=== PATIENT | female | born 1975 | race Caucasian/White ===

== ENCOUNTER 2018-01-24 08:19 | Day surgery (SDC) | payer SELFPAY ==
[2018-01-21 11:27] LABS: Hematocrit 38.6 % (37-47); Hemoglobin 13.3 g/dl (12.0-15.0); Mean Corp Hgb Conc 34.5 g/gl (32-36); Mean Corpuscular Hgb 28.9 pg (27.0-32.0); Mean Corpuscular Volume 83.9 fL (81-99); Mean Platelet Vol. 10.5 fl (6.2-12.0); Platelet Count 212 K/mm3 (150-450); RBC Distribution Width SD 39.6 fl (35.1-43.9)
[2018-01-21 11:28] LABS: Scan Indicated on CBC? Y/N NO
[2018-01-22 10:47] LABS: Cancer Antigen 125 18.5 U/mL (0.0-38.1)
[2018-01-24] VITALS (8 sets, daily range): BP systolic 81–110; BP diastolic 47–63; PULSE 40–61; RESP 12–18; TEMP 36.2–36.9; O2SAT 94–100; BMI 23.3
--- NOTE | 2018-01-24 | FLU_PTH ---
PATIENT: STEPHANE HENRIQUEZ [place] [facility] [id number] AGE/SX: 42/F ROOM: RE01/24/[address]: Dr. Berna Sunshine MD : 1975 BED: DIS: 01/24/2018 SPEC #: [id number] RECD: 01/24/18 13:45 STATUS: KEI RYNE #: [id number] AMBAR: 01/24/18 00:[address]: Berna Sunshine DEPT: CYTOLOGY RECD BY: Saurav Porter ENTERED: 01/24/18 13:46 SP TYPE: Fluid OTHR DR: No Primary Care Phys Tissues: Pelvis, NOS Procedures: Special Stain Group II Surgery Specimen Level IV Cytospin Fluid HEADER OPERATION: Laparoscopic salpingectomy, removal left ovarian cyst PRE-OP DIAGNOSIS: Pelvic mass, pelvic pain, sterilization requested TISSUE SUBMITTED: Pelvic washings in normal saline for cytology DIAGNOSIS CYTOLOGY Pelvic washings for cytology (cytospin and cell block): Negative for malignant cells. AM:grzegorz 01/25/18 COMMENT Please correlate with corresponding surgical case ([id number]). CYTOLOGY STUDY Slides are reviewed. CYTOLOGY GROSS Received is 50 ml of cloudy red fluid labeled with the patient's name and and designated per the requisition as pelvic washings. Submitted for cytology preparation including cell block. / 01/24/18 TC:5 CPT: 84604, 02152
--- NOTE | 2018-01-24 | FALS_PTH ---
PATIENT: STEPHANE HENRIQUEZ [place] [facility] [place][id number] AGE/SX: 42/F ROOM: RE01/24/[address]: Dr. Berna Sunshine MD : 1975 BED: DIS: 01/24/2018 SPEC #: [id number] RECD: 01/24/18 13:45 STATUS: KEI RYNE #: [id number] AMBAR: 01/24/18 00:[address]: Berna Sunshine DEPT: SURGICAL PATHOLOGY RECD BY: Saurav Porter ENTERED: 01/24/18 13:45 SP TYPE: FALL TUBES OTHR DR: No Primary Care Phys Tissues: A - Fallopian tube B - Left ovary Procedures: Surgery Specimen Level II Surgery Specimen Level IV HEADER OPERATION: Laparoscopic salpingectomy, removal left ovarian cyst PRE-OP DIAGNOSIS: Pelvic mass, pelvic pain, sterilization requested TISSUE SUBMITTED: A ? Fallopian tubes, B ? Left ovarian cyst MICROSCOPIC DIAGNOSIS A. Right and left fallopian tubes, bilateral salpingectomies: Fallopian tubes with no pathologic change. B. Left ovarian cyst, oophorectomy: Hemorrhagic and partially infarcted ovary. Cysts suggestive of corpus luteal cysts with associated microcalcifications and edema. AM:grzegorz 01/25/18 COMMENT Please see corresponding cytology ([id number]). MICROSCOPIC DESCRIPTION Slides are reviewed. GROSS DESCRIPTION A - Received is one container labeled with the patient's name and designated bilateral fallopian tubes. The specimen consists of two fallopian tubes with an average length of 7 cm and has an average diameter of 0.7 cm. Both fallopian tubes have normal fimbriated ends. No mass lesions are identified. One fallopian tube contains a smooth glistening cyst containing clear fluid and measuring 0.7 cm adjacent to its fimbrial end. This fallopian tube is inked in black ink. Tumbler Operator sections of both fallopian tubes and cyst are submitted in one cassette. B - Received in fixative is one container labeled with the patient's name and designated left ovarian cyst. The specimen consists of a [id number] cystic structure measuring 6 x 3.5 x 2.2 cm. The external surface is smooth and glistening. Sections reveal hemorrhagic and granular cut surfaces with focal cystic change. Tumbler Operator sections are submitted in two cassettes. / AM:grzegorz 01/24/18 TC:5 CPT: 55560 x2, 99137
[2018-01-24 08:48] LABS: Internal QC Validated? YES +Cl - CLEAR BKGD; Pregnancy, Urine Negative Negative
[2018-01-24] MEDS: Celecoxib 200 MG Capsule 400 MG PO (09:05)
[2018-01-24] MEDS: Acetaminophen 500 MG Tablet 1000 MG PO (09:05)
[2018-01-24] MEDS: Gabapentin 600 MG Tablet PO (09:06)
--- NOTE | 2018-01-24 10:55 | PCM.DC.TUB ---
Discharge Diet: No Restrictions - Increase fluid intake for the next 48 hours. Discharge Activity: Return to Normal Activity, May Drive - when you are no longer taking pain/narcotic meds., May Shower, May Take a Tub Bath - in 7 days Additional Activity Instructions:: Ambulate often the next week after surgery. Nothing in the vagina for 5 days. Call your doctor if your incision/area has: Continuous Slow Oozing, Sudden Increased Bleeding, Increased Pain/ Swelling, Increased Redness, Foul Smelling Discharge Call your doctor if you observe: Fever of 101 or Higher Cleanse incision/area with: Soap & Water - your incisions have skin glue, they can get wet. Allergies/Adverse Reactions: Allergies No Known Allergies Allergy (Verified 01/18/18 14:21) Medications to take at Discharge Multivitamin [Multiple Vitamins] 1 each PO DAILY 01/18/18 Primary Care Physician: Care Physician,No Primary [Primary Care Provider] - Test Results: Test results from this visit will be discussed in further detail at your follow-up appointment, if applicable. Please Follow Up With: Berna Sunshine MD - [phone] When: Dr. Sunshine's office as scheduled in 2-4 weeks or as needed
[2018-01-24] MEDS: Bupivacaine Mpf 0.5% 30 ML VIAL (11:30)
--- NOTE | 2018-01-24 11:40 | PCM.OPRPT ---
Report of Operation Date of Procedure: 01/24/18 Pre-Operative Diagnosis: pelvic pain, complext pelvic elis, sterilization request Post-Operative Diagnosis: same Surgery/Procedure Performed:: laparoscopic bilateral salpingectomy, left ovarian cyst removal Description of Surgical Findings:: complex left ovarian cyst on small pedicle, adhered to posterior cul de sac w/ filmy adhesions, normal right ovary, remainder of left ovary normal, normal uterus and tubes, otherwise normal pelvis resident care provider: Jamaica Walls resident care provider: Dari Calix MS3 Type of Anesthesia:: General Special Medications: none Specimen's removed: bilateral tubes, left ovarian cyst Drains: none Estimated Blood Loss (mL): 10cc Fluids Replaced: 1400 cc LR Description of Procedure: The patient was taken to the operating room where she was prepped and draped in the dorsolithotomy position. A weighted speculum was placed in the vagina and the anterior lip of the cervix was grasped with a tenaculum. The Cherie uterine manipulator was placed and the remainder of the instruments were removed from the vagina. Attention was turned to the abdomen. All port sites were infiltrated with 0.5% Marcaine before skin incisions were made. A 5 mm intraumbilical incision was made. The anterior abdominal wall was tented up with 2 towel clamps while a 5 mm blade less trocar and sleeve were directly inserted. Intraperitoneal placement was confirmed with the laparoscope. The pneumoperitoneum was created and the underlying abdominal contents were intact. The patient was placed in Trendelenburg. Right and left lower quadrant ports were placed under direct visualization lateral to the inferior epigastric vessels. The bowel was swept away and the above findings were noted. Pelvic Washings were done with normal saline. The LigaSure device was used to clamp seal and transect the antimesenteric portions of the right tube to the cornual insertion of the uterus. The tube was amputated from the uterus and the pedicles were all confirmed to be hemostatic. The same procedure was performed on the contralateral side. The specimens were brought out through a 5 mm port. The pedicles were again examined and found to be hemostatic. The complex left ovarian cyst was noted to be somewhat adhered to the posterior cul-de-sac. The adhesions were filmy. The cyst arose from a small pedicle on the left ovary. It was dictated from the left ovary added small pedicle with the LigaSure device. The filmy adhesions were then taken down with the LigaSure device and the mass was freed. The umbilical port site was enlarged and an Endo Catch bag was placed through this port and the mass was placed inside. Once it was inside the bag it was ruptured bluntly. The mass and the cyst contents were removed through the umbilical incision. Care was taken to ensure that the contents named in the bag were not spilled. The umbilical fascia was closed with the Clyde Krueger device and an 0 Vicryl suture. Adequate closure was noted with palpation. The lateral ports were removed under direct visualization and no active bleeding was noted. The pneumoperitoneum was released. The skin incisions were closed with Monocryl suture in a subcuticular fashion and skin glue Dr. aVldez.. The vaginal instruments were removed and the vaginal sweep was completed by Dr. Valdez.. The procedure was performed by me with assistance other than as dictated above. All sponge and needle counts were correct and the patient was taken to the recovery room in stable condition. Grafts/Implants Used: none - Complications none - Admit VTE Documentation VTE Present on Admission: No VTE Mechan Device Prophylaxis: SCD's VTE Pharm Prophylaxis ordered?: No Reason prophylaxis not ordered:: Procedure Not Indicated
== END 2018-01-24 14:52 | disposition home or self-care (01) ==
LOC: SDC 08:20 → AC 08:25
PROVIDERS: Visit Provider Obstetrics & Gynecology
PROC: (CPT 58661; principal; 2018-01-24 09:45)
DX: N83.202 Unspecified ovarian cyst, left side (principal); N83.8 Other noninflammatory disorders of ovary, fallopian tube and broad ligament; Z30.2 Encounter for sterilization; F34.1 Dysthymic disorder
CPT/HCPCS: 00840; 58661; 58662; 36415; 81025; 85027; 86304; 86850; 86900; 88108; 88302; 88305; 88313; J7120; J2405

== ENCOUNTER 2025-04-05 10:44 | Emergency (ER) | payer OTHER, SELFPAY ==
[2025-04-05 10:46] VITALS: BP 116/84; PULSE 77; RESP 16; TEMP 36.9; O2SAT 99; BMI 23.6
[2025-04-05 11:52] VITALS: BP 125/90; PULSE 66; RESP 14; O2SAT 100
[2025-04-05 12:03] LABS: Mucous, Urine 0 SEEN /hpf (<or=2+); Red Blood Cells-Urine 0 SEEN /hpf (0-5)
[2025-04-05 12:03] LABS: Hematocrit 37.1 % (37-47); Hemoglobin 13.2 g/dL (12.0-15.0); Immature Granulocytes Count 0.010 X10^3/uL (0.0-0.0); Mean Corp Hgb Conc 35.6 g/dL (32-36); Mean Corpuscular Volume 83.0 fL (81-99); Mean Platelet Vol. 9.9 fl (6.2-12.0); NRBC Flagged by Analyzer 0 % (0-5); Platelet Count 211 K/mm3 (150-450); RBC Distribution Width CV 12.2 % (11.6-14.6); RBC Distribution Width SD 36.7 fl (35.1-43.9); Red Blood Count 4.47 M/mm3 (4.2-5.4); White Blood Count 5.3 K/mm3 (4.4-11.0)
[2025-04-05 12:05] LABS: Color, Urine Yellow (Yellow); Glucose, Dipstick Normal (Normal); Ketone-Dipstick Negative (Negative); Leukocyte Esterase-Dipstick Negative /ul (Negative); Nitrite-Dipstick Negative (Negative); Occult Blood-Urine 10 /ul (Negative); Protein-Dipstick 15 mg/dl (Negative); Specific Gravity, Urine 1.010 (1.002-1.030); Urine Bilirubin Dipstick Negative (Negative)
[2025-04-05 12:05] LABS: Internal QC Validated? YES +Cl - CLEAR BKGD; Pregnancy, Serum, hCG Quali. NEGATIVE Negative; Record Kit Lot#, Serum Preg. 980607
[2025-04-05 12:13] LABS: AST(SGOT) 21 U/L (<=31); Alanine Aminotransfer ALT/SGPT 13 U/L (<=34); Albumin, Serum 4.5 g/dL (3.5-5.0); Alkaline Phosphatase 37 U/L (35-104); Anion Gap 9 (5-15); BUN 10 mg/dL (4-19); BUN/Creat Ratio 12.5 RATIO (10-20); Calcium,Total 9.1 mg/dL (7.6-11.0); Carbon Dioxide 26.6 mmol/L (21.0-32.0); Chloride 102 mmol/L (98-108); Estimated Creatinine Clearance 83.62 ml/min (50-250); Globulin 2.2 g/dL (2.2-4.2); Glucose 89 mg/dL (70-99); Lipase 45 U/L (13-75); Potassium 4.0 mmol/L (3.3-5.1)
[2025-04-05 12:16] LABS: Squamous Epithelial Cells - UA 0-5 SEEN /hpf (5-10)
--- NOTE | 2025-04-05 12:50 | CT_ITS ---
PROCEDURE: CT/Abdomen/Pelvis W IV Cont ONLY
[2025-04-05 13:28] VITALS: BP 124/71; PULSE 71; RESP 16; O2SAT 99
--- NOTE | 2025-04-05 15:18 | ED.VIS.GI ---
HPI HPI - GI History of Present Illness Chief Complaint: Abd Pain Informant: patient and spouse/S.O. Narrative Narrative: Very pleasant 49-year-old female presenting to the emergency room with right lower quadrant abdominal pain. Patient states over the past couple days she has had pain in the right lower quadrant of her abdomen that occurs when she stands and ambulates. When she is sitting or laying down she states it feels better. She notes no anorexia or vomiting. No urinary symptoms. No constipation or diarrhea. She has had prior ovarian cyst. No reported fevers. PFSH PFSH Medical History Uterine fibroid Ovarian cyst Medical History no medical history Home Medications ?Medication ?Instructions ?Recorded ?Last Taken ?Type NK 04/05/25 Unknown History Allergy/AdvReac Type Severity Reaction Status Date / Time No Known Allergies Allergy Verified 04/05/25 10:46 Social History Smoking Status: Never smoker ROS ROS ED Constitutional Constitutional ED: Denies chills, fever(s) or weight loss Eyes Eyes: Denies change in vision or diplopia ENT ENT ED: Denies ear pain, rhinorrhea or sore throat Cardiovascular Cardiovascular: Denies chest pain, orthopnea, palpitations or racing heartbeat Respiratory/Chest Respiratory/Chest: Denies cough, dyspnea or orthopnea Gastrointestinal Gastrointestinal: Reports abdominal pain; Denies diarrhea, nausea or vomiting Genitourinary Genitourinary ED: Denies dysuria, hematuria or urinary frequency Musculoskeletal Musculoskeletal: Denies arthralgias or myalgias Integumentary Denies abscess or rash Neurologic Neurologic: Denies headache(s) or weakness Psychiatric Psychiatric: Denies anxiety, depression, suicidal ideation or suicidal thoughts Endocrine Endocrinology: Denies polydipsia, polyphagia or polyuria Allergic/Immunologic Allergic/Immunologic ED: Denies mouth swelling, tongue swelling or urticaria EXAM Physical Exam Const Vital Signs: 04/05/25 10:46 04/05/25 11:52 04/05/25 13:28 Temperature 98.4 F Temperature Source Oral Pulse Rate 77 66 71 Respiratory Rate 16 14 16 Blood Pressure 116/84 H 125/90 H 124/71 H Blood Pressure Mean 94 101 88 Pulse Ox 99 100 99 Oxygen Delivery Method Room Air Room Air Room Air Positive well nourished and well developed General Appearance ED: well developed and NAD HEENT Reports normocephalic, head/scalp atraumatic and moist mucous membranes Eyes PERRL and EOMs intact bilaterally Neck no lymphadenopathy, supple and no JVD Resp normal respiratory effort and clear to auscultation bilaterally Cardio regular rate, regular rhythm and no murmurs GI Inspection: Negative for abdominal distention Auscultation: normoactive bowel sounds Palpation: soft and tender RLQ; Negative for guarding, rigid or rebound tenderness present Back/Spine no CVA tenderness and normal ROM Extremity normal to inspection General Extremety ED: Negative for edema General Extremity: Negative for edema Neuro oriented x3 and CN's II-XII intact bilaterally Sensorium / Orientation: alert Motor Exam: strength 5/5 throughout Psych mental status grossly normal Mood & Affect: Negative for depressed or tearful Skin no rashes or lesions noted and no wounds MDM MDM MDM Narrative Medical decision making narrative: Differential diagnosis includes but not limited to UTI kidney stones appendicitis colitis ovarian cyst/ruptured ovarian cyst ovarian torsion Basic blood work shows a white count of 5.3 with a normal differential. Given at least 36 hours of pain I think this is reassuring. CMP within normal limits normal lipase test is negative. Urinalysis with no obvious infection or hematuria. CT of the abdomen pelvis with IV contrast obtained read by radiology and reviewed by myself. There is evidence some mild amount of free fluid in the pelvis possibly physiologic versus ruptured cyst. Do not see any significant inflammatory changes in the right lower quadrant but I cannot fully visualize the appendix another can the radiologist. Talk with the patient and her regarding the above findings. Think this is less likely to be appendicitis given this has been at least 36 hours we have a normal white count no fever no inflammatory changes on the CT and pain only when we stand or walk. I would recommend observation and anti-inflammatories. Return if worsening or development of new symptoms. History & Record Review Discussion w/independent historian: Patient and Family Additional record(s) reviewed:: Prior outpatient record and Prior labs Lab Data Attestation: I reviewed the patient's lab results. Labs: Laboratory Results - last 24 hr 04/05/25 04/05/25 11:30 11:59 WBC 5.3 RBC 4.47 Hgb 13.2 Hct 37.1 MCV 83.0 MCH 29.5 MCHC 35.6 RDW Std Deviation 36.7 RDW Coeff of Brielle 12.2 Plt Count 211 MPV 9.9 Immature Gran % (Auto) 0.200 Neut % (Auto) 64.8 Lymph % (Auto) 24.4 [place] % (Auto) 8.6 Eos % (Auto) 1.1 Baso % (Auto) 0.9 Absolute Neuts (auto) 3.4 Absolute Lymphs (auto) 1.30 Nucleated RBC % 0 Sodium 138 Potassium 4.0 Chloride 102 Carbon Dioxide 26.6 Anion Gap 9 BUN 10 Creatinine 0.83 Estim Creat Clear Calc 83.62 Est GFR (MDRD) Non-Af 88 BUN/Creatinine Ratio 12.5 Glucose 89 Calcium 9.1 Total Bilirubin 0.82 AST 21 ALT 13 Alkaline Phosphatase 37 Total Protein 6.6 Albumin 4.5 Globulin 2.2 Albumin/Globulin Ratio 2.1 Lipase 45 Serum , Qual NEGATIVE Urine Color Yellow Urine Clarity Clear Urine pH 6.5 Ur Specific [place] 1.010 Urine Protein 15 H Urine Glucose (UA) Normal Urine Ketones Negative Urine Occult Blood 10 H Urine Nitrite Negative Urine Bilirubin Negative Urine Urobilinogen Normal Ur Leukocyte Esterase Negative Urine RBC 0 SEEN Urine WBC 0-5 SEEN Ur Squamous Epith Cells 0-5 SEEN Urine Bacteria 0 SEEN Urine Mucus 0 SEEN Radiography Diagnostic Testing: Clinical Impression(s) from Imaging Studies Abdomen/Pelvis CT 04/05/25 12:50 IMPRESSION: Free-fluid in the pelvis which could be gynecologic. No positive findings for appendicitis although the appendix is difficult to discretely identify. Negative for obstruction. Reading Location: [facility] Discharge Plan Triage Chief Complaint: Abd Pain ED Provider: Moses Marin Dx/Rx/DC Orders Clinical Impression: Abdominal pain, acute Instructions: Abdominal Pain, Treating a Ruptured Ovarian Cyst Prescriptions: No Action NK Primary Care Provider: LARS CHATTERJEE Referrals: LARS CHATETRJEE [Other] - As Needed Print Language: Prydeinig Disposition Disposition: Home, Self Care Discharge Date/Time: 04/05/25 14:38
== END 2025-04-05 14:38 | disposition home or self-care (01) ==
PROVIDERS: Emergency Provider Emergency Medicine; Visit Provider Emergency Medicine
DX: R10.31 Right lower quadrant pain (principal)
CPT/HCPCS: 74177; 80053; 81001; 83690; 84703; 85025; 99283; Q9967; A4216